=== PATIENT | male | born 1980 | race Caucasian/White ===

== ENCOUNTER 2024-08-16 13:23 | Inpatient (IN) | payer MEDICAID ==
[~2024-08-16] VITALS: Ht 193 cm; Wt 90.1 kg
[2024-08-16 14:17] LABS: BASOPHILS % (AUTO) 0.6 % (0.0-2.0); EOSINOPHILS % (AUTO) 1.8 % (1.0-6.0); HEMATOCRIT 41.4 % (41-53); LYMPHOCYTES # (AUTO) 2.3 K/uL (1.0-4.8); LYMPHOCYTES % (AUTO) 29.1 % (22.0-44.0); MEAN CORPUSCULAR HEMOGLOBIN 31.3 pg (26.0-34.0); MEAN CORPUSCULAR HGB CONC 33.8 G/dL (31.0-37.0); MEAN CORPUSCULAR VOLUME 93 fL (80-100); MONOCYTES # (AUTO) 0.7 K/uL (0.1-1.0); NEUTROPHILS # (AUTO) 4.8 K/uL (1.8-7.7); NEUTROPHILS % (AUTO) 59.5 % (40.0-70.0); PLATELET COUNT (AUTO) 284 K/uL (150-450); RED BLOOD CELL COUNT(AUTO) 4.47 MIL/uL (4.50-5.90); RED CELL DISTRIBUTION WIDTH 14.9 % (11.5-14.5)
[2024-08-16 14:27] LABS: ANION GAP 7 mmol/L (8-16); CALCIUM, TOTAL 8.6 mg/dL (8.8-10.5); CARBON DIOXIDE 25 mmol/L (22-29); CHLORIDE 104 mmol/L (98-107); GLOMERULAR FILTR. RATE CALC > 60 mL/min (>60); GLUCOSE,RANDOM 107 mg/dL (70-110); POTASSIUM 3.8 mmol/L (3.5-5.1); SODIUM SERUM 136 mmol/L (136-145); UREA NITROGEN, BLOOD 19 mg/dL (7-18)
[2024-08-16] MEDS ORDERED: OLANZapine 5 MG RAPDIS TABLET PO PRN (14:30)
[2024-08-16] MEDS ORDERED: PROMETHAZINE HCL 25 MG TABLET PO PRN (14:30)
[2024-08-16] MEDS ORDERED: MAG HYDROX/ALUMINUM HYD/SIMETH ES 30 ML SUSPENSION UDCUP PO PRN (14:30)
[2024-08-16] MEDS ORDERED: GuaiFENesin/D-METHORPHAN [SUGAR-FREE] 200-20MG/10 ML SYRUP UDCUP PO PRN (14:30)
[2024-08-16] MEDS ORDERED: MAGNESIUM HYDROXIDE SUSPENSION 30 ML UDCUP PO PRN (14:30)
[2024-08-16] MEDS ORDERED: TUBERCULIN, PURIFIED PROTEIN DERIVATIVE 5 TU/0.1 ML SYRINGE ID ONE (14:30)
[2024-08-16] MEDS ORDERED: LOPERAMIDE HCL 2 MG CAPSULE PO PRN (14:30)
[2024-08-16] MEDS ORDERED: ACETAMINOPHEN 325 MG TABLET PO PRN (14:30)
[2024-08-16] MEDS ORDERED: ZOLPIDEM TARTRATE 10 MG TABLET PO PRN (14:30)
[2024-08-16 14:35] LABS: COVID AG,FIA SOURCE NASAL SWAB
[2024-08-16 14:39] LABS: APPEARANCE,URINE CLEAR (CLEAR); BILIRUBIN,URINE NEGATIVE (NEGATIVE); COLOR,URINE LIGHT YELLOW (YELLOW); GLUCOSE, URINE (UA) NEGATIVE (NEGATIVE); KETONES,URINE NEGATIVE (NEGATIVE); LEUKOCYTE ESTERASE ,URINE NEGATIVE (NEGATIVE); NITRATE,URINE NEGATIVE (NEGATIVE); OCCULT BLOOD,URINE NEGATIVE (NEGATIVE); PH,URINE 5.5 (5.0-8.0); PH,URINE DRUG SCREEN 5.5 (5.0-8.0); PROTEIN,URINE NEGATIVE (NEGATIVE); SPECIFIC GRAVITIY, URINE 1.014 (1.003-1.030); UROBILINOGEN,URINE <=1.0 mg/dL (<=1.0)
[2024-08-16 14:46] LABS: ALCOHOL, URINE DRUG SCREEN NEGATIVE (NEGATIVE); AMPHET/METH SCREEN,URINE NEGATIVE (NEGATIVE); BARBITURATE SCREEN, URINE NEGATIVE (NEGATIVE); BENZODIAZEPINES SCREEN,URINE NEGATIVE (NEGATIVE); CANNABINOID SCREEN,URINE NEGATIVE (NEGATIVE); COCAINE SCREEN,URINE NEGATIVE (NEGATIVE); METHADONE SCREEN, URINE NEGATIVE (NEGATIVE); OPIATE SCREEN,URINE NEGATIVE (NEGATIVE); PHENCYCLIDINE SCREEN,URINE NEGATIVE (NEGATIVE)
[2024-08-16 15:02] LABS: SARS-COV2 (COVID) ANTIGEN,FIA Negative (Negative)
[2024-08-16] MEDS: LORazepam 2 MG TABLET PO PRN (19:24)
[2024-08-16] MEDS: HydrOXYzine PAMOATE 50 MG CAPSULE PO PRN (19:54)
[2024-08-16] MEDS: THIAMINE 100 MG TABLET PO SCH (20:08)
[2024-08-16] MEDS: DIVALPROEX SODIUM 500 MG ER TABLET PO SCH (20:08)
[2024-08-16] MEDS: OLANZapine 5 MG RAPDIS TABLET PO SCH (20:09)
[2024-08-16] MEDS: MELATONIN 5 MG TABLET PO SCH (20:09)
[2024-08-16 23:46] VITALS: O2SAT 98
[2024-08-17 02:00] VITALS: BP 128/89; PULSE 91; RESP 18; TEMP 97.8; O2SAT 98
[2024-08-17 08:31] LABS: HEMOGLOBIN A1C 5.3 % (3.8-5.6)
[2024-08-17 08:44] VITALS: BP 101/58; PULSE 81; RESP 18; TEMP 98.3; O2SAT 98
[2024-08-17 08:44] LABS: CHOL/HDL RATIO 4.3 (4.2-7.3); FREE T4 (FREE THYROXINE) 0.82 ng/dL (0.76-1.46); THYROID STIMULATING HORMONE 1.32 uIU/mL (0.36-3.74)
[2024-08-17] MEDS: NALTREXONE HCL 50 MG TABLET PO SCH (09:13)
[2024-08-17] MEDS: FOLIC ACID 1 MG TABLET PO SCH (09:13)
[2024-08-17] MEDS: MULTIVITAMINS WITH MINERALS, THERAPEUTIC TABLET PO SCH (09:13)
[2024-08-17] MEDS: NICOTINE 21 MG/24 HOUR PATCH TD SCH (09:23)
[2024-08-17] MEDS ORDERED: QUEtiapine FUMARATE 100 MG TABLET PO PRN (16:30)
[2024-08-17 20:39] VITALS: RESP 18
[2024-08-17] MEDS: QUEtiapine FUMARATE 25 MG TABLET PO SCH (21:03)
[2024-08-17] MEDS: RisperiDONE 0.5 MG TABLET PO SCH (21:03)
[2024-08-18] MEDS: GABAPENTIN 300 MG CAPSULE PO PRN (06:08)
[2024-08-18] MEDS: BuPROPion HCL 100 MG SR TABLET PO SCH (09:40)
[2024-08-18] MEDS: ATORVASTATIN CALCIUM 40 MG TABLET PO SCH (09:40)
[2024-08-18 09:47] VITALS: BP 124/88; PULSE 98; RESP 18; TEMP 98; O2SAT 97
[2024-08-18 20:18] VITALS: BP 131/86; PULSE 73; RESP 18; TEMP 97.6; O2SAT 100
[2024-08-19 08:42] VITALS: BP 127/82; PULSE 100; RESP 18; TEMP 97.5; O2SAT 100
[2024-08-19 20:12] VITALS: BP 118/85; PULSE 95; RESP 18; TEMP 97.9; O2SAT 97
[2024-08-19] MEDS: QUEtiapine FUMARATE 25 MG TABLET PO SCH (20:45)
[2024-08-19] MEDS: RisperiDONE 0.5 MG TABLET PO SCH (20:45)
[2024-08-20 09:00] VITALS: BP 127/82; PULSE 89; RESP 18; TEMP 97.5; O2SAT 100
[2024-08-20] MEDS ORDERED: MELA5TAB40 PO (14:57)
[2024-08-20] MEDS ORDERED: BUPR-225 PO (14:57)
[2024-08-20] MEDS ORDERED: NALT50TA33 PO (14:57)
[2024-08-20] MEDS ORDERED: QUET100T34 PO (14:57)
[2024-08-20] MEDS ORDERED: NICO-803 TD (17:16)
[2024-08-20] MEDS ORDERED: ATOR40TA28 PO (17:17)
[2024-08-20] MEDS ORDERED: RisperiDONE 1 MG TABLET PO SCH (21:00)
[2024-08-20] MEDS ORDERED: QUEtiapine FUMARATE 100 MG TABLET PO SCH (21:00)
== END 2024-08-20 17:45 | disposition home or self-care (01) | DRG 750 ==
LOC: EMS 13:23 → B3A 08-17 00:13
PROVIDERS: ADMIT Psychiatry & Neurology Psychiatry; ATTEND Psychiatry & Neurology Psychiatry
PROC: GZHZZZZ Group Psychotherapy (ICD-10-PCS; principal; 2024-08-17)
PROC: GZ51ZZZ Individual Psychotherapy, Behavioral (ICD-10-PCS; 2024-08-17)
PROC: GZ58ZZZ Individual Psychotherapy, Cognitive-Behavioral (ICD-10-PCS; 2024-08-17)
PROC: GZ56ZZZ Individual Psychotherapy, Supportive (ICD-10-PCS; 2024-08-18)
DX: F25.9 Schizoaffective disorder, unspecified (principal); Z91.148 Patient's other noncompliance with medication regimen for other reason; E78.5 Hyperlipidemia, unspecified; F17.200 Nicotine dependence, unspecified, uncomplicated; J44.9 Chronic obstructive pulmonary disease, unspecified; Z20.822 Contact with and (suspected) exposure to COVID-19; Z59.00 Homelessness unspecified; Z63.9 Problem related to primary support group, unspecified; Z65.3 Problems related to other legal circumstances; Z88.0 Allergy status to penicillin; Z55.9 Problems related to education and literacy, unspecified
CPT/HCPCS: 80048; 80061; 80307; 81003; 83036; 84439; 84443; 85025; 86592; 99285; G0480

== ENCOUNTER 2024-09-24 00:38 | Emergency (ER) | payer MEDICARE, MEDICAID ==
[~2024-09-24] VITALS: Ht 185.4 cm; Wt 95.0 kg
[~2024-09-24 00:38] MED LIST: ATOR40TA28 PO; BUPR-225 PO; MELA5TAB40 PO; NALT50TA33 PO; NICO-803 TD; QUET100T34 PO
[2024-09-24 03:30] VITALS: TEMP 98.7
[2024-09-24 04:11] LABS: PLATELET COUNT (AUTO) 305 K/uL (150-450); RED BLOOD CELL COUNT(AUTO) 4.26 MIL/uL (4.50-5.90); RED CELL DISTRIBUTION WIDTH 14.1 % (11.5-14.5); WHITE BLOOD COUNT (AUTO) 9.2 K/uL (4.5-11.0)
[2024-09-24 04:20] LABS: CALCIUM, TOTAL 8.4 mg/dL (8.8-10.5); CREATININE 0.67 mg/dL (0.60-1.30); GLOMERULAR FILTR. RATE CALC > 60 mL/min (>60); GLUCOSE,RANDOM 98 mg/dL (70-110); SODIUM SERUM 141 mmol/L (136-145); UREA NITROGEN, BLOOD 14 mg/dL (7-18)
[2024-09-24 06:30] VITALS: BP 139/73; PULSE 88; RESP 16; O2SAT 100
== END 2024-09-24 06:37 | disposition home or self-care (01) ==
LOC: EMS 00:38
DX: F41.9 Anxiety disorder, unspecified (principal); J44.9 Chronic obstructive pulmonary disease, unspecified; F20.9 Schizophrenia, unspecified; F12.90 Cannabis use, unspecified, uncomplicated; F10.90 Alcohol use, unspecified, uncomplicated; Z88.0 Allergy status to penicillin; Z79.899 Other long term (current) drug therapy; Y90.9 Presence of alcohol in blood, level not specified
CPT/HCPCS: 99283; 80048; 85025; 36415; G0480

== ENCOUNTER → 2024-09-25 | Emergency (ER) | payer MEDICARE, MEDICAID ==
[~2024-09-25] VITALS: Ht 182.9 cm; Wt 81.4 kg
[2024-09-25 15:31] VITALS: TEMP 97.2
[2024-09-25 15:47] VITALS: BP 106/72; PULSE 83; RESP 17; O2SAT 100
== END | disposition still patient (30) ==
LOC: EMS 15:14
DX: S90.821A Blister (nonthermal), right foot, initial encounter (principal); M79.671 Pain in right foot; F20.9 Schizophrenia, unspecified; F41.9 Anxiety disorder, unspecified; F10.90 Alcohol use, unspecified, uncomplicated; J44.9 Chronic obstructive pulmonary disease, unspecified; F12.90 Cannabis use, unspecified, uncomplicated; E78.5 Hyperlipidemia, unspecified; Z88.0 Allergy status to penicillin; Z79.899 Other long term (current) drug therapy; X58.XXXA Exposure to other specified factors, initial encounter; Y93.89 Activity, other specified; Y92.89 Other specified places as the place of occurrence of the external cause; Y99.8 Other external cause status; Y90.9 Presence of alcohol in blood, level not specified
CPT/HCPCS: 99283

== ENCOUNTER 2024-10-16 18:19 | Inpatient (IN) | payer MEDICAID ==
[~2024-10-16] VITALS: Ht 193 cm; Wt 80.7 kg
[~2024-10-16 18:19] MED LIST changes: -NICO-803 TD
[2024-10-16] MEDS ORDERED: ZOLPIDEM TARTRATE 10 MG TABLET PO PRN (19:00)
[2024-10-17 03:07] VITALS: BP 124/85; PULSE 72; RESP 18; TEMP 98.2; O2SAT 99
[2024-10-17 08:20] VITALS: RESP 18
[2024-10-17] MEDS: BuPROPion HCL XL 150 MG ER TABLET PO SCH (10:58)
[2024-10-17 20:35] VITALS: BP 100/70; PULSE 83; RESP 18; TEMP 97.7; O2SAT 100
[2024-10-17] MEDS: MELATONIN 5 MG TABLET PO SCH (21:00)
[2024-10-18 08:54] VITALS: RESP 18
[2024-10-18] MEDS: ETHYL ALCOHOL 62% ANTISEPTIC NASAL SANITIZER 0.6 ML AMPUL NASAL SCH (12:24)
[2024-10-18 20:31] VITALS: BP 104/82; PULSE 87; RESP 18; TEMP 98.1; O2SAT 98
[2024-10-19 08:31] VITALS: BP 92/81; PULSE 112; RESP 16; TEMP 97.3; O2SAT 97
[2024-10-19 08:50] LABS: PLATELET COUNT (AUTO) 286 K/uL (150-450); RED BLOOD CELL COUNT(AUTO) 5.35 MIL/uL (4.50-5.90); RED CELL DISTRIBUTION WIDTH 13.9 % (11.5-14.5); WHITE BLOOD COUNT (AUTO) 4.6 K/uL (4.5-11.0)
[2024-10-19 09:03] LABS: APPEARANCE,URINE CLEAR (CLEAR); GLUCOSE, URINE (UA) NEGATIVE (NEGATIVE); LEUKOCYTE ESTERASE ,URINE NEGATIVE (NEGATIVE); NITRATE,URINE NEGATIVE (NEGATIVE); OCCULT BLOOD,URINE NEGATIVE (NEGATIVE); PH,URINE DRUG SCREEN 6.0 (5.0-8.0); SPECIFIC GRAVITIY, URINE 1.016 (1.003-1.030)
[2024-10-19 09:12] LABS: ASPARTATE AMINOTRANSFERASE 20 U/L (15-37); CALCIUM, TOTAL 9.1 mg/dL (8.8-10.5); CHOL/HDL RATIO 3.9 (4.2-7.3); CREATININE 0.92 mg/dL (0.60-1.30); GLOMERULAR FILTR. RATE CALC > 60 mL/min (>60); GLUCOSE,RANDOM 86 mg/dL (70-110); LDL CHOL (CALC.) 116 mg/dL (0-130); SODIUM SERUM 139 mmol/L (136-145); TOTAL PROTEIN, SERUM 7.7 g/dL (6.4-8.2); UREA NITROGEN, BLOOD 13 mg/dL (7-18)
[2024-10-19 09:33] LABS: ALCOHOL, BLOOD (SERUM) < 3 mg/dL (0-10)
[2024-10-19 12:10] LABS: ALCOHOL, URINE DRUG SCREEN NEGATIVE (NEGATIVE); AMPHET/METH SCREEN,URINE NEGATIVE (NEGATIVE); BARBITURATE SCREEN, URINE NEGATIVE (NEGATIVE); CANNABINOID SCREEN,URINE POSITIVE (NEGATIVE); COCAINE SCREEN,URINE NEGATIVE (NEGATIVE); METHADONE SCREEN, URINE NEGATIVE (NEGATIVE)
[2024-10-19 20:17] VITALS: BP 109/70; PULSE 87; RESP 18; TEMP 97.7; O2SAT 100
[2024-10-19] MEDS: CHLORHEXIDINE GLUCONATE 2% TOWELETTE [2'S/6'S] TP SCH (21:33)
[2024-10-20 08:43] VITALS: BP 99/60; PULSE 79; RESP 18; TEMP 97.6; O2SAT 98
[2024-10-20 20:12] VITALS: BP 103/69; PULSE 88; RESP 19; TEMP 97.9; O2SAT 97
[2024-10-21 08:53] VITALS: BP 103/64; PULSE 76; RESP 18; TEMP 97.7; O2SAT 97
[2024-10-21 20:55] VITALS: BP 125/73; PULSE 80; RESP 18; TEMP 99; O2SAT 98
[2024-10-22 09:00] VITALS: BP 103/67; PULSE 85; RESP 17; TEMP 98.5; O2SAT 100
[2024-10-22 20:43] VITALS: BP 118/90; PULSE 95; RESP 18; TEMP 97.3; O2SAT 100
[2024-10-23 08:24] VITALS: BP 114/79; PULSE 80; RESP 18; TEMP 97.1; O2SAT 97
[2024-10-23 20:31] VITALS: BP 105/77; PULSE 89; RESP 18; TEMP 97.9; O2SAT 99
[2024-10-24 08:56] VITALS: BP 104/71; PULSE 83; RESP 17; TEMP 98.6; O2SAT 99
[2024-10-24 20:11] VITALS: BP 118/75; PULSE 96; RESP 18; TEMP 97.9; O2SAT 98
[2024-10-25] MEDS: DOXYCYCLINE HYCLATE 100 MG TABLET PO SCH (08:22)
[2024-10-25 08:42] VITALS: BP 100/69; RESP 17; TEMP 97.7; O2SAT 99
[2024-10-25] MEDS ORDERED: BUPR-344 PO (13:16)
[2024-10-25] MEDS ORDERED: QUET100T PO (13:24)
[2024-10-25] MEDS ORDERED: BUPR-50 PO (13:25)
[2024-10-25] MEDS ORDERED: DOXY-354 PO (13:30)
[2024-10-26] MEDS ORDERED: QUET100T34 PO (19:40)
[2024-10-26] MEDS ORDERED: BUPR-49 PO (19:40)
[2024-10-26] MEDS ORDERED: MELA5TAB40 PO (19:40)
== END 2024-10-25 17:51 | disposition home or self-care (01) | DRG 750 ==
LOC: B2S 10-17 01:00 → UNDODISIN 10-22 07:42 → B2S 10-22 16:03
PROVIDERS: ADMIT Psychiatry & Neurology Psychiatry; ATTEND Psychiatry & Neurology Child & Adolescent Psychiatry
PROC: GZHZZZZ Group Psychotherapy (ICD-10-PCS; principal; 2024-10-17)
PROC: GZ52ZZZ Individual Psychotherapy, Cognitive (ICD-10-PCS; 2024-10-18)
DX: F25.1 Schizoaffective disorder, depressive type (principal); R45.851 Suicidal ideations; L02.92 Furuncle, unspecified; E78.5 Hyperlipidemia, unspecified; Z59.00 Homelessness unspecified; Z79.899 Other long term (current) drug therapy; Z88.0 Allergy status to penicillin; Z91.51 Personal history of suicidal behavior
CPT/HCPCS: 80053; 80061; 80307; 81003; 83036; 84436; 84443; 85025; 86592; 87081; G0480